=== PATIENT | female | born 2000 | race Caucasian/White ===

== ENCOUNTER → 2025-01-25 11:21 | Outpatient (CLI) | payer OTHER, SELFPAY | PROVIDERS: Visit Provider Registered Nurse | DX: N94.9 Unspecified condition associated with female genital organs and menstrual cycle (principal) | CPT/HCPCS: 87086; 87210 ==

== ENCOUNTER → 2025-01-27 16:27 | Outpatient (CLI) | payer OTHER, SELFPAY ==
[2025-01-27 18:05] LABS: Urine N gonorrhoeae NOT DETECTED
[2025-01-27 18:06] LABS: Urine Chlamydia NOT DETECTED
== END ==
PROVIDERS: Visit Provider Registered Nurse
DX: N89.8 Other specified noninflammatory disorders of vagina (principal); Z11.3 Encounter for screening for infections with a predominantly sexual mode of transmission
CPT/HCPCS: 87086; 87491; 87591